=== PATIENT | female | born 1985 | race Caucasian/White ===

== ENCOUNTER 2016-05-15 03:36 | Emergency (ER) | payer OTHER ==
[~2016-05-15] VITALS: Ht 170.2 cm; Wt 86.2 kg
[2016-05-15 03:40] VITALS: BP 124/67; PULSE 76; RESP 17; TEMP 97.9; O2SAT 98
--- NOTE | 2016-05-15 03:40 | NUR ---
Pt placed in chair for evaluation
--- NOTE | 2016-05-15 03:45 | NUR ---
Pt accompanied to ED by 2 [facility] for blood alcohol drawn and medical clearance. A&Ox4, denies chestpain or SOB, denies N/V/D, skin intact. Will continue to monitor
--- NOTE | 2016-05-15 04:00 | NUR ---
MD dean examining pt at [facility]
[2016-05-15] MEDS ORDERED: LEVO200T8 PO (04:04)
--- NOTE | 2016-05-15 04:05 | NUR ---
Written and verbal consent obtained from patient for blood alcohol, name and verified by patient. Disinfected patient's skin with povidone iodine that did not contain alcohol or other volatile organic compound. Collected the blood from the subject named by venipuncture, in the presence of Officer [id number]. Used a sterile, dry hypodermic needle and dry vacuum blood collection. The dry vacuum blood collection was supplied by the officer named above. Withdrew a specimen of blood from left antecubital of the subject named above. Inverted the blood tube several times to ensure that the preservative and anticoagulant were thoroughly mixed in the blood specimen. I initialed the blood tube label for identification. The labeled blood tube was handed directly to the Officer named above. The blood tube stopper remained in place while I had possession of the blood tube. The Officer placed tube into envelope and sealed it in my presence. Envelope initialed by myself and Officer named above. Patient tolerated well, bandage applied, and bleeding controlled.
[2016-05-15] MEDS ORDERED: [UNRECOGNIZED DRUG - REMARK] PO (04:10)
[2016-05-15 04:41] VITALS: BP 123/70; PULSE 78; RESP 17; TEMP 97.9; O2SAT 99
--- NOTE | 2016-05-15 04:41 | NUR ---
PT WAS MEDICALLY CLEARED BY ER MD DR HUBER. PT AMBULATED OUT OF ER WITH [employer] OFFICERS. COPY OF MEDICAL EVALUATION FORM AND DISCHARGE PAPERS GIVEN TO OFFICER. PT IN STABLE CONDITION.
== END 2016-05-15 04:41 ==
LOC: SED 03:36
DX: Z02.83 Encounter for blood-alcohol and blood-drug test (principal)